=== PATIENT | female | born 1990 | race Caucasian/White ===

== ENCOUNTER 2024-02-05 12:15 | Emergency (ER) | payer BC ==
[~2024-02-05] VITALS: Ht 154.9 cm; Wt 64.4 kg
[2024-02-05] MEDS ORDERED: PRED50TA PO (13:01)
[2024-02-05 13:17] VITALS: BP 130/79; TEMP 98.2; O2SAT 100
== END 2024-02-05 13:18 | disposition home or self-care (01) ==
LOC: ER 12:30
DX: K51.90 Ulcerative colitis, unspecified, without complications (principal)